=== PATIENT | female | born 1930 | race Caucasian/White ===

== ENCOUNTER 2016-09-25 14:14 | Emergency (ER) | payer OTHER ==
[~2016-09-25] VITALS: Ht 157.5 cm; Wt 50.3 kg
[~2016-09-25 14:14] MED LIST: ALBU0.0912 IH
[2016-09-25 14:40] VITALS: BP 138/66
== END 2016-09-25 17:28 | disposition left against medical advice (07) ==
LOC: MED 14:14
DX: R42 Dizziness and giddiness (principal); Z53.21 Procedure and treatment not carried out due to patient leaving prior to being seen by health care provider